=== PATIENT | female | born 1970 | race Two or more races ===

== ENCOUNTER 2022-09-06 09:13 | Emergency (ER) | payer SELFPAY ==
[~2022-09-06] VITALS: Ht 165.1 cm; Wt 93.7 kg
[2022-09-06 14:02] LABS: Urine Bacteria FEW /hpf (None Seen); Urine Blood Negative /uL (Negative); Urine Mucus FEW (None Seen); Urine Specific Gravity 1.016 (1.001-1.035); Urine WBC 4 /hpf (0 - 5)
[2022-09-06 15:34] VITALS: BP 110/73
== END 2022-09-06 15:38 | disposition home or self-care (01) ==
LOC: ER 09:13
DX: I10 Essential (primary) hypertension (principal)
CPT/HCPCS: 70450; 81001

== ENCOUNTER 2024-06-13 10:33 | Emergency (ER) | payer MEDICAID ==
[~2024-06-13] VITALS: Ht 165.1 cm; Wt 93.0 kg
[2024-06-13 11:00] VITALS: PULSE 82; RESP 17; O2SAT 95
--- NOTE | 2024-06-13 11:22 | ED.PDOC ---
HPI (NEURO) HPI Comments This is a 53-year-old female who comes to the ED with chief complain of right- sided facial droop. No relevant past medical history. She states having a similar episode 15 years ago. Patient stated that since Thursday morning she woke up with a left-sided neck cramping pain that traveled to the occipital area, she stated that this headache was moderate, throbbing, which later stated experiencing blurry vision most prominent on the right eye, associated with dryness, numbness and weakness of the right side of the face, she also mentioned having right upper arm numbness. Patient denied any weakness or numbness in any other limb, denied any gait imbalance, any nausea, vomiting, chest pain, shortness of breath, dizziness, lightheadedness, hearing loss, loss of taste or olfactory disturbances. Chief Complaint: Right Sided Weakness Time Seen by MD: 10:34 Primary Care Provider: EMELYN Long Notes: Nurses Notes Information Source: Patient Mode of Arrival: Ambulatory Severity: Mild Headache Severity: Moderate Timing: Days Duration: Since onset Headache Location: Occipital Weakness Location: (R) Sided Numbness Location: (R) Sided Past Medical History PAST MEDICAL HISTORY: Denies Surgical History: Denies all surgeries ELECTRIC CELL TENDER History: Denies all ELECTRIC CELL TENDER Hx Family History Family History: Reviewed,noncontributory to illness Social History Smoker: Non-Smoker Alcohol: Denies ETOH Use Drugs: Denies Drug Use Lives In: Home Constitutional: denies: chills, diaphoresis, fatigue, fever, malaise, sweats, weakness, others EENTM: reports: blurred vision, photophobia; denies: double vision, ear bleeding, ear discharge, ear drainage, ear pain, ear ringing, eye pain, eye redness, hearing loss, mouth pain, mouth swelling, nasal discharge, nose bleeding, nose congestion, nose pain, tearing, throat pain, throat swelling, voice changes, others Respiratory: denies: cough, hemoptysis, orthopnea, SOB at rest, shortness of breath, SOB with excertion, stridor, wheezing, others Cardiovascular: denies: chest pain, dizzy spells, diaphoresis, Dyspnea on exertion, edema, irregular heart beat, left arm pain, lightheadedness, palpitations, PND, syncope, others Gastrointestinal: denies: abdomen distended, abdominal pain, blood streaked bowels, constipated, diarrhea, dysphagia, difficulty swallowing, hematemesis, melena, nausea, poor appetite, poor fluid intake, rectal bleeding, rectal pain, vomiting, others Genitourinary: denies: abnormal vagina bleeding, burning, dyspareunia, dysuria, flank pain, frequency, hematuria, incontinence, pain, , vagina discharge, urgency, others Neurological: reports: headache, paresthesia (Face), right sided numbness (Face and right upper arm), right sided weakness (Face); denies: dizziness, fainting, left sided numbness, left sided weakness, numbness, pre-existing deficit, seizure, speech problems, tingling, tremors, weakness, others Musculoskeletal: denies: back pain, gout, joint pain, joint swelling, muscle pain, muscle stiffness, neck pain, others Integumetry: denies: bruises, change in color, change in hair/nails, dryness, l aceration, lesions, lumps, rash, wounds, others Allergic/Immunocompromised: denies: Difficulty Healing, Frequent Infections, Hives, Itching, others Hematologic/Lymphatic: denies: anemia, blood clots, easy bleeding, easy bruising, swollen glands, others Endocrine: denies: excessive hunger, excessive sweating, excessive thirst, excessive urination, flushing, intolerance to cold, intolerance to heat, unexplained weight gain, unexplained weight loss, others Psychiatric: denies: anxiety, bipolar disorder, depression, hopeless, panic disorder, schizophrenia, sleepless, suicidal, others Physical Exam General Appearance: No Apparent Distress, Normal HEENT: Eye Lid (R), Normal ENT Inspection, Pharynx Normal, Photophobia, TMs Normal Neck: Full Range of Motion, Non-Tender, Normal, Normal Inspection Respiratory: Chest Non-Tender, Lungs Clear, No Accessory Muscle Use, No Respiratory Distress, Normal Breath Sounds Cardiovascular: No Edema, No JVD, No Murmur, No Gallop, Normal Peripheral Pulses, Regular Rate/Rhythm Breast Exam: Deferred Gastrointestinal: No Organomegaly, Non Tender, No Pulsatile Mass, Normal Bowel Sounds, Soft Genitalia: Deferred Pelvic: Deferred Rectal: Deferred Extremities: No calf tenderness, Normal capillary refill, Normal inspection, Normal range of motion, Non-tender, No pedal edema Neurologic: Alert, switchman II-XII nml as Tested (Facial nerve palsy), Facial Droop, Motor Weakness, Normal Affect, Normal Mood, R/L Numbness, Sensory Deficit Cerebellar Function: Normal Reflexes: NOT DONE Skin: Dry, Normal Color, Warm Lymphatic: No Adenopathy Was a procedure done? Was a procedure done?: No Differential Diagnosis (SZ) Seizure: CVA/TIA CVA: Atkins's Palsy, Electrolyte Imbalance Headache: Migraine X-Ray, Labs, Meds, VS Vital Signs Date Time Temp Pulse Resp B/P (MAP) Pulse Ox O2 Delivery O2 Flow Rate FiO2 06/13/24 12:19 98.2 77 16 110/71 (84) 97 98.2 06/13/24 11:00 82 17 95 Room Air* 0 21 06/13/24 11:00 98.2 82 17 120/70 (87) 95 98.2 06/13/24 10:39 82 06/13/24 10:36 97.8 75 18 131/81 (98) 98 Lab Test 06/13/24 11:24 06/13/24 11:18 06/13/24 10:40 06/13/24 10:38 Range/Units White Blood Count 5.3 4.4-10.8 10^3/uL Red Blood Count 5.26 H 4.0-5.20 10^6/uL Hemoglobin 16.0 12.2-16.2 g/dL Hematocrit 45.7 36.0-46.0 % Mean Corpuscular Volume 87.0 80.0-100.0 fL Mean Corpuscular Hemoglobin 30.4 28.0-32.0 pg Mean Corpuscular Hemoglobin Concent 34.9 32.0-36.0 g/dL Red Cell Distribution Width 13.3 11.8-14.3 % Platelet Count 188 140-450 10^3/uL Mean Platelet Volume 7.3 6.9-10.8 fL Neutrophils (%) (Auto) 67.3 37.0-80.0 % Lymphocytes (%) (Auto) 23.3 10.0-50.0 % Monocytes (%) (Auto) 6.7 0.0-12.0 % Eosinophils (%) (Auto) 2.1 0.0-7.0 % Basophils (%) (Auto) 0.6 0.0-2.0 % Neutrophils # (Auto) 3.6 1.6-8.6 10 ^3/uL Lymphocytes # (Auto) 1.2 0.4-5.4 10 ^3/uL Monocytes # (Auto) 0.4 0-1.3 10 ^3/uL Eosinophils # (Auto) 0.1 0-0.8 10 ^3/uL Basophils # (Auto) 0 0-0.2 10 ^3/uL Nucleated Red Blood Cells 0.1 % Sodium Level 141 136-145 mmol/L Potassium Level 4.2 3.5-5.1 mmol/L Chloride Level 106 98-107 mmol/L Carbon Dioxide Level 32 H 20-31 mmol/L Anion Gap 3 L 5-15 Blood Urea Nitrogen 22 9-23 mg/dL Creatinine 0.88 0.550-1.02 mg/dL Glomerular Filtration Rate Calc 80 >90 mL/min BUN/Creatinine Ratio 25.0 H 10.0-20.0 Serum Glucose 65 L 74-106 mg/dL Calcium Level 9.9 8.7-10.4 mg/dL POC Glucose 79 110 H 70-106 mg/dl Urine Color Light-yellow Yellow Urine Clarity Clear Clear Urine pH 5.0 5.0-9.0 Urine Specific [place] 1.018 1.001-1.035 Urine Protein Negative Negative Urine Ketones Negative Negative Urine Blood Trace H Negative /uL Urine Nitrite Negative Negative Urine Bilirubin Negative Negative Urine Urobilinogen Normal Negative mg/dL Urine Leukocyte Esterase Negative Negative /uL Urine RBC 1 0 - 4 /hpf Urine WBC 1 0 - 5 /hpf Urine Squamous Epithelial Cells Few <5 /hpf Urine Bacteria Few H None Seen /hpf Urine Hyaline Casts Few 0 - 2 /lpf Urine Mucus Few None Seen Urine Glucose Normal Normal mg/dL On my initial examination, patient appeared in mild distress due to her concerning right-sided facial numbness, weakness and blurry vision. Patient is noted to have a right-sided facial droop, with decreased sensation on the lower part of the face, weakness on raising her right eyebrow, on smiling, she also mentioned having right upper arm numbness. We will ordered a CBC, BMP, head CT. 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 Blood work was unremarkable, head CT was also unremarkable, patient will be sent home and we will recommended to follow with her PCP within one week, we will prescribe Medrol pack, was recommended her to get eyedrops for lubrication, patient was reassured about her condition, extensively explained about Atkins's palsy. Images Reviewed?: Images reviewed and evaluated by me Time of 1ST Reevaluation: 11:11 Reevaluation 1ST: Unchanged Time of 2ND Reevaluation: 12:00 Reevaluation 2ND: Improved Patient Education/Counseling: Diagnosis, Treatment Family Education/Counseling: No Family Present Departure 1 Departure Time of Disposition: 12:23 Impression: Primary Impression: Atkins's palsy Additional Impression: HTN (hypertension) Disposition: HOME / SELF CARE / HOMELESS Condition: Stable e-Prescriptions Methylprednisolone (Medrol Dosepak) 4 Mg Marcin 4 MG PO UD, #21 TAB UAD Prov: GOPI LOVE RESIDENT 06/13/24 Critical Care Note Critical Care Time?: No Stability Stability form required: No Heart Score Heart Score: Heart Score Response (Comments) Value History N/A 0 EKG N/A 0 Age N/A 0 Risk Factors N/A 0 Troponin N/A 0 Total 0 GOPI LOVE RESIDENT Jun 13, 2024 11:22
[2024-06-13 11:34] LABS: Urine Bacteria FEW /hpf (None Seen); Urine Blood TRACE /uL (Negative); Urine Clarity Clear (Clear); Urine Color Light-Yellow (Yellow); Urine Hyaline Cast FEW /lpf (0 - 2); Urine Mucus FEW (None Seen); Urine Protein, UAD Negative (Negative); Urine Specific Gravity 1.018 (1.001-1.035); Urine Urobilinogen Normal (Negative); Urine WBC 1 /hpf (0 - 5)
--- NOTE | 2024-06-13 11:43 | DVH ---
EXAM: CT HEAD WITHOUT CONTRAST HISTORY: right sided numbness, r/o stroke COMPARISON: HEAD WITHOUT CONTRAST on DOS: 09/06/22 TECHNIQUE: Axial images were obtained and reformatted in coronal and sagittal planes. All CT scans at this medical facility are performed using dose modulation techniques as appropriate t o a performed exam including the following: Automated exposure control was utilized; adjustment of th e MA and/or KV according to patient size; and use of iterative reconstruction technique. CT Dose: CTDI volume is 56 mGy. Dose-length product is 1095 mGy*cm FINDINGS: There is no evidence of acute intracranial hemorrhage, mass, mass effect midline shift. There is no h ydrocephalus or extra-axial fluid collection. Shearer-white matter differentiation is maintained.. The visualized paranasal sinuses and mastoid air cells are clear. The calvarium is intact. Are scatte red partially calcified scalp nodules, largest in the posterior occipital scalp. IMPRESSION: 1. No acute intracranial process. HS:Y
[2024-06-13 11:48] LABS: Basophils # (auto) 0 10 ^3/uL (0-0.2); Basophils % (auto) 0.6 % (0.0-2.0); Eosinophils # (auto) 0.1 10 ^3/uL (0-0.8); Eosinophils % (auto) 2.1 % (0.0-7.0); Hematocrit 45.7 % (36.0-46.0); Lymphocytes # (auto) 1.2 10 ^3/uL (0.4-5.4); Lymphocytes % (auto) 23.3 % (10.0-50.0); Mean Corpuscular Hemoglobin 30.4 pg (28.0-32.0); Mean Corpuscular Hgb Conc. 34.9 g/dL (32.0-36.0); Monocytes # (auto) 0.4 10 ^3/uL (0-1.3); Monocytes % (auto) 6.7 % (0.0-12.0); Neutrophils # (auto) 3.6 10 ^3/uL (1.6-8.6); Neutrophils % (auto) 67.3 % (37.0-80.0); Nucleated Red Blood Cells % 0.1 %; Platelet Count (auto) 188 10^3/uL (140-450); Red Blood Cells 5.26 10^6/uL (4.0-5.20); Red Cell Distribution Width 13.3 % (11.8-14.3); White Blood Cell 5.3 10^3/uL (4.4-10.8)
[2024-06-13 11:54] LABS: Chloride 106 mmol/L (98-107); Potassium 4.2 mmol/L (3.5-5.1); Sodium 141 mmol/L (136-145)
[2024-06-13 11:55] LABS: Anion Gap 3 (5-15); Carbon Dioxide 32 mmol/L (20-31)
[2024-06-13 11:56] LABS: Calcium 9.9 mg/dL (8.7-10.4)
[2024-06-13 12:00] LABS: Glucose 65 mg/dL (74-106)
[2024-06-13 12:01] LABS: Blood Urea Nitrogen 22 mg/dL (9-23)
[2024-06-13 12:19] VITALS: BP 110/71; PULSE 77; RESP 16; TEMP 98.2; O2SAT 97
[2024-06-13] MEDS ORDERED: METH4PAK PO (12:24)
--- NOTE | 2024-06-13 19:34 | ECG ---
[facility] Test Date: 2024-06-13 Test Time: 10:39:54 Pat Name: JAYME MARIN Department: ER Room: Gender: F [employer] Packing Header: JOHANNA : 1970 Requested By: EMERGENCY EMERGENCY Order Number: [id number] Reading MD: Aravind Whiting Measurements Intervals [place] Rate: 82 P: 59 UT: 192 QRS: 81 QRSD: 101 T: 45 QT: 361 QTc: 422 Interpretive Statements Sinus rhythm Electronically Signed On 06-16-2024 11:16:18 PST by Aravind Whiting Please click the below link to view image of tracing.
== END 2024-06-13 12:31 | disposition home or self-care (01) ==
LOC: ER 10:33
DX: I10 Essential (primary) hypertension (principal); G51.0 Bell's palsy
CPT/HCPCS: 36415; 70450; 80048; 81001; 82962; 85025; 93005